=== PATIENT | male | born 1985 | race Caucasian/White ===

== ENCOUNTER 2017-02-17 11:20 | Emergency (ER) | payer OTHER ==
[~2017-02-17] VITALS: Ht 175.3 cm; Wt 68.0 kg
[2017-02-17 11:34] VITALS: BP 115/69
--- NOTE | 2017-02-17 12:06 | NUR ---
Patient back to lobby from XRAY
--- NOTE | 2017-02-17 12:28 | NUR ---
Patient to OF.
--- NOTE | 2017-02-17 12:30 | NUR ---
31M BIB FAMILY C/O RT FOOT PAIN, ACHING/STABBING, NON-RADIATING, 10/10 X YESTERDAY S/P KICKING A MEDICINE BALL; NO ERYTHEMA OR SWELLING NOTED TO SITE AT THIS TIME; RT PEDAL PULSE +3, RT CAP REFILL IMMEDIATE, NO LOSS OF SENSATION TO RT FOOT AT THIS TIME; PT AA&OX4, PERRLA, BL LUNG SOUNDS CLEAR, RR EVEN/UNLABORED, SKIN IS WARM/DRY/INTACT AT THIS TIME; PT RESTING IN OVERFLOW, POSITIONED FOR COMFORT; ER MD MADE AWARE OF STATUS. WILL CONTINUE TO MONITOR.
[2017-02-17 12:40] VITALS: BP 121/62
--- NOTE | 2017-02-17 12:40 | NUR ---
Patient discharged with v/s stable. Written and verbal after care instructions given and explained. Patient alert, oriented and verbalized understanding of instructions. Ambulatory with steady gait. All questions addressed prior to discharge. ID band removed. Patient advised to follow up with PMD. Rx of NAPROXEN 500 MG TAB given. Patient educated on indication of medication including possible reaction and side effects. Opportunity to ask questions provided and answered.
== END 2017-02-17 12:40 | disposition home or self-care (01) ==
LOC: MED 11:20
DX: S93.601A Unspecified sprain of right foot, initial encounter (principal); W22.8XXA Striking against or struck by other objects, initial encounter; Y93.89 Activity, other specified; Y92.89 Other specified places as the place of occurrence of the external cause; Y99.8 Other external cause status
CPT/HCPCS: 73630; 99284

== ENCOUNTER 2023-09-07 16:33 | Emergency (ER) | payer OTHER ==
[~2023-09-07] VITALS: Ht 175.3 cm; Wt 71.8 kg
[2023-09-07 16:49] VITALS: BP 108/65; PULSE 94; RESP 18; TEMP 98.3; O2SAT 100
[2023-09-07 18:57] VITALS: BP 134/70; PULSE 80; RESP 19; TEMP 98.3; O2SAT 99
== END 2023-09-07 18:34 | disposition home or self-care (01) ==
LOC: MED 16:33
DX: S20.212A Contusion of left front wall of thorax, initial encounter (principal); J45.909 Unspecified asthma, uncomplicated; F17.210 Nicotine dependence, cigarettes, uncomplicated; F12.90 Cannabis use, unspecified, uncomplicated; Z79.899 Other long term (current) drug therapy; W21.89XA Striking against or struck by other sports equipment, initial encounter; Y93.89 Activity, other specified; Y92.89 Other specified places as the place of occurrence of the external cause; Y99.8 Other external cause status
CPT/HCPCS: 71101; 99283